=== PATIENT | female | born 1955 ===

== ENCOUNTER 2018-01-12 09:49 | Observation (INO) | payer BC ==
[2018-01-12] MEDS ORDERED: NACL 0.9% 3 ML SYG IV (11:30)
[2018-01-12] MEDS ORDERED: ONDANSETRON 4 MG INJ IV (11:30)
[2018-01-12] MEDS ORDERED: HYDROCODONE/APAP (5/325) TAB PO (11:30)
[2018-01-12] MEDS ORDERED: ALPRAZOLAM 0.25 MG TAB PO (14:30)
[2018-01-12 14:53] LABS: CK-MB 0.44 ng/ml (0.0-2.4); TROPONIN-I < 0.012 ng/ml (0.000-0.120)
[2018-01-12 15:00] LABS: FREE T4 (FREE THYROXINE) 1.03 ng/dl (0.78-2.44)
[2018-01-12] MEDS ORDERED: DEXTROSE 50% 50 ML SYRINGE IV ×2 (15:00)
[2018-01-12] MEDS ORDERED: GLUCOSE GEL 15 GRAM TUBE BUCCAL (15:00)
[2018-01-12] MEDS ORDERED: GLUCOSE GEL 15 GRAM TUBE PO ×2 (15:00)
[2018-01-12] MEDS ORDERED: GLUCAGON 1 MG INJ IM (15:00)
[2018-01-12 15:31] LABS: CK INDEX 0.6; CREATINE KINASE 80 IU/L (23-200)
[2018-01-12] MEDS: ACETAMINOPHEN 325 MG TAB PO (15:48)
[2018-01-12] MEDS: PANTOPRAZOLE (EC) 40 MG TAB PO (17:33)
[2018-01-12] MEDS: INSULIN ASPART [NOVOLOG] 3 ML PEN SC ×2 (17:41→20:19)
[2018-01-12] MEDS ORDERED: NITROGLYCERIN (SL) 0.4 MG TAB SL (18:30)
[2018-01-12] MEDS: GABAPENTIN 100 MG CAP PO (20:09)
[2018-01-12] MEDS: METOPROLOL 25 MG TAB PO (20:10)
[2018-01-12 21:35] LABS: CREATINE KINASE 82 IU/L (23-200)
[2018-01-12 21:49] LABS: CK INDEX 0.5; CK-MB 0.39 ng/ml (0.0-2.4); TROPONIN-I < 0.012 ng/ml (0.000-0.120)
[2018-01-13] MEDS: PANTOPRAZOLE (EC) 40 MG TAB PO (06:02)
[2018-01-13 06:15] LABS: ADD MAN DIFF? NO
[2018-01-13 06:21] LABS: BASOPHIL # 0.1 10^3/ul (0.0-0.1); BASOPHILS % 0.9 % (0.0-2.0); EOSINOPHILS # 0.1 10^3/ul (0.0-0.5); EOSINOPHILS % 1.6 % (0.0-7.0); HEMATOCRIT 30.9 % (37.0-47.0); HEMOGLOBIN 9.5 g/dl (12.0-16.0); LYMPHOCYTES # 2.7 10^3/ul (0.8-2.9); LYMPHOCYTES % 40.4 % (15.0-51.0); MEAN CORPUSCULAR HEMOGLOBIN 24.9 pg (29.0-33.0); MEAN CORPUSCULAR HGB CONC 30.7 g/dl (32.0-37.0); MEAN CORPUSCULAR VOLUME 81.1 fl (82.0-101.0); MEAN PLATELET VOLUME 9.7 fl (7.4-10.4); MONOCYTE # 0.7 10^3/ul (0.3-0.9); MONOCYTES % 10.4 % (0.0-11.0); NEUTROPHIL # 3.1 10^3/ul (1.6-7.5); NEUTROPHILS % 46.4 % (39.0-77.0); PLATELET COUNT 362 10^3/UL (140-415); RED BLOOD COUNT 3.81 10^6/ul (4.20-5.40); RED CELL DISTRIBUTION WIDTH 16.3 % (11.5-14.5)
[2018-01-13 06:21] LABS: WHITE BLOOD COUNT 6.7 10^3/ul (4.8-10.8)
[2018-01-13 06:47] LABS: PHOSPHORUS 5.4 mg/dl (2.5-4.9)
[2018-01-13 06:47] LABS: CHOL/HDL RATIO 5.8 RATIO; CHOLESTEROL 246 mg/dl (100-200); HDL CHOLESTEROL 42 mg/dl (35-98); LDL CHOLESTEROL,CALCULATED 159 mg/dl; MAGNESIUM 1.7 mg/dl (1.7-2.5); TRIGLYCERIDES 223 mg/dl (0-149)
[2018-01-13 06:51] LABS: ANION GAP 14 (8-16); BLOOD UREA NITROGEN 14 mg/dl (7-20); CALCIUM 9.9 mg/dl (8.4-10.2); CARBON DIOXIDE 29 mmol/L (21-31); CHLORIDE 101 mmol/L (97-110); CREATININE 0.63 mg/dl (0.44-1.00); GLUCOSE 173 mg/dl (70-220); POTASSIUM 4.8 mmol/L (3.5-5.1); SODIUM 139 mmol/L (135-144)
[2018-01-13 06:54] LABS: TROPONIN-I < 0.012 ng/ml (0.000-0.120)
[2018-01-13 07:03] LABS: HEMOGLOBIN A1C 8.5 % (0-5.9)
[2018-01-13] MEDS: INSULIN ASPART [NOVOLOG] 3 ML PEN SC ×2 (08:00→13:51)
[2018-01-13] MEDS: ASPIRIN (EC) 81 MG TAB PO (08:33)
[2018-01-13] MEDS: GABAPENTIN 100 MG CAP PO ×2 (08:33→13:56)
[2018-01-13] MEDS: ESCITALOPRAM 10 MG TAB PO (08:33)
[2018-01-13] MEDS: BENAZEPRIL 20 MG TAB PO (08:34)
[2018-01-13] MEDS: METOPROLOL 25 MG TAB PO (08:34)
[2018-01-13] MEDS: AMLODIPINE 5 MG TAB PO (09:00)
[2018-01-13 11:16] LABS: IRON 49 ug/dl (35-150)
[2018-01-13 11:25] LABS: % IRON SATURATION 10 % SAT (22-52); TOTAL IRON BINDING CAPACITY 482 ug/dl (241-421)
[2018-01-13 12:27] LABS: FERRITIN 6.4 ng/ml (11.1-264.0)
[2018-01-13] MEDS: REGADENOSON 0.4 MG/5 ML SYG (12:33)
[2018-01-13] MEDS ORDERED: ATORVASTATIN 20 MG TAB PO (21:00)
[2018-01-13] MEDS ORDERED: FERROUS SULFATE (EC) 325 MG TAB PO (21:00)
== END 2018-01-13 16:30 | disposition home or self-care (01) ==
LOC: 6WM 09:49
DX: R07.89 Other chest pain (principal); I10 Essential (primary) hypertension; E78.5 Hyperlipidemia, unspecified; K21.9 Gastro-esophageal reflux disease without esophagitis; E11.40 Type 2 diabetes mellitus with diabetic neuropathy, unspecified; D50.9 Iron deficiency anemia, unspecified; F41.9 Anxiety disorder, unspecified; E87.6 Hypokalemia
CPT/HCPCS: 78452; 80048; 80061; 82550; 82553; 82728; 82962; 83036; 83540; 83735; 84100; 84439; 84443; 84484; 85025; 93005; 93017; 93306; 99217; G0378